=== PATIENT | male | born 1995 | race Two or more races ===

== ENCOUNTER 2024-07-29 10:12 | Emergency (ER) | payer BC ==
[~2024-07-29] VITALS: Ht 165.1 cm; Wt 78.9 kg
[2024-07-29 12:33] VITALS: BP 128/78; TEMP 98.1; O2SAT 100
== END 2024-07-29 12:34 | disposition home or self-care (01) ==
LOC: ER 11:05
DX: F41.0 Panic disorder [episodic paroxysmal anxiety] (principal); R94.31 Abnormal electrocardiogram [ECG] [EKG]; R06.02 Shortness of breath; R00.2 Palpitations; R06.4 Hyperventilation; F41.9 Anxiety disorder, unspecified